=== PATIENT | male | born 1985 ===

== ENCOUNTER 2017-01-08 17:29 | Emergency (ER) | payer MEDICAID ==
[2017-01-08 17:47] VITALS: RESP 16; TEMP 98; O2SAT 100
[2017-01-08] MEDS ORDERED: levETIRAcetam 500 MG in Sodium Chloride 0.9% 100 ML IVPB STA (18:19)
--- NOTE | 2017-01-08 18:19 | ED PDOC ---
HPI: Seizure Time Seen by Provider: 01/08/17 17:49 Chief Complaint (Nursing): Headache Chief Complaint (Provider): Seizure History Per: Patient History/Exam Limitations: no limitations Recent Seizure Activity Began: Days Ago: (x1) Number Of Seizures: One Length Of Seizures (Duration): Seconds (3) Quality Of Seizure: Generalized Precipitating Factor(s): None Associated Symptoms: denies: Bit Tongue, Incontinence Of Urine Post-ictal Period: No Additional Complaint(s): Mario Ann, a 31 year old male, presents to the ED post seizure. The patient states that the seizure was witnessed by his mother and lasted about 3 seconds. He reports that he fell to the ground with loss of consciousness. As per mother , there was no post ictal period, no incontinence nor tongue biting. The patient states that he did not come to the hospital yesterday because he felt okay but this morning he woke with a bad headache. He states that he felt the pain in the back of his eyes and it radiated to the back of is head. The patient reports that he had a similar episode 5 months ago, witnessed by his . Prior to this episode he states that he was not feeling well and then had a seizure which lasted a few seconds but was not seen by a doctor at that time either. Patient states that before and after each episode he was sweaty and pale. Past Medical History Reviewed: Historical Data, Nursing Documentation, Vital Signs Vital Signs: Last Vital Signs Temp 98.0 F 01/08/17 17:44 Pulse 67 01/08/17 17:44 Resp 16 01/08/17 17:44 BP 125/79 01/08/17 17:44 Pulse Ox 100 01/08/17 18:20 - Surgical History Surgical History: No Surg Hx - Family History Family History: States: Unknown Family Hx - Home Medications Home Medications: Ambulatory Orders Medication Instructions Recorded No Known Home Med 01/08/17 - Allergies Allergies/Adverse Reactions: Allergies Allergy/AdvReac Type Severity Reaction Status Date / Time No Known Allergies Allergy Verified 01/08/17 17:44 Review of Systems ROS Statement: Except As Marked, All Systems Reviewed And Found Negative Neurological: Positive for: Seizures, Headache Physical Exam - Reviewed Nursing Documentation Reviewed: Yes Vital Signs Reviewed: Yes - Physical Exam Appears: Positive for: Non-toxic, No Acute Distress Head Exam: Positive for: ATRAUMATIC, NORMAL INSPECTION, NORMOCEPHALIC Skin: Positive for: Normal Color, Warm, Dry. Negative for: Rash Eye Exam: Positive for: Normal appearance, EOMI, PERRL ENT: Positive for: Normal ENT Inspection. Negative for: Nasal Congestion, Tonsillar Exudate Neck: Positive for: Normal, Painless ROM, Supple Cardiovascular/Chest: Positive for: Regular Rate, Rhythm, Chest Non Tender. Negative for: Edema, Tachycardia Respiratory: Positive for: Normal Breath Sounds. Negative for: Rales, Rhonchi, Wheezing, Respiratory Distress Gastrointestinal/Abdominal: Positive for: Normal Exam, Bowel Sounds, Soft. Negative for: Tenderness, Mass, Guarding, Rebound Back: Positive for: Normal Inspection. Negative for: L CVA Tenderness, R CVA Tenderness Extremity: Positive for: Normal ROM. Negative for: Tenderness, Pedal Edema, Deformity, Swelling Lymphatic: Positive for: Normal Exam. 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 Negative for: Motor/Sensory Deficits, Aphasia, Facial Droop - ECG O2 Sat by Pulse Oximetry: 100 (RA) Pulse Ox Interpretation: Normal - Physician Consult Information Time Consulting Physican Contacted: 18:20 Physician Contacted: Kalia Parnell Outcome Of Conversation: Recommends Keppra 500 mg bid, can follow-up as outpatient if CT head and electrolytes WNL. Medical Decision Making Medical Decision Makin Initial Impression 31 year old male presenting post seizure with headache Initial Plan: * CT Head w/o Contrast * EKG * CMP * TSH * Udip * CBC * PTT * Prothrombin Time * CXR * Keppra 500mg NS 100ml IVPB * Accucheck * Urinalysis * Reevaluation 1899 Patient will be signed out to Dr. Tafoya pending CT and labs. Scribe Attestation Documented by Maddi Brown acting as a scribe for Amy Reyes MD. Provider Attestation All medical record entries made by the Scribe were at my direction and personally dictated by me. I have reviewed the chart and agree that the record accurately reflects my personal performance of the history, physical exam, medical decision making, and the department course for this patient. I have also personally directed, reviewed, and agree with the discharge instructions and disposition. Disposition - Disposition Forms: [employer] (Ukrainian)
[2017-01-08 18:52] LABS: BASO % 0.4 % (0.0-2.0); EOS # 0.2 K/uL (0.0-0.7); EOS % 2.8 % (0.0-4.0); HEMATOCRIT 46.7 % (35.0-51.0); LYMPH # 3.5 K/uL (1.0-4.3); LYMPH % 40.5 % (20.0-40.0); MEAN CELL VOLUME 87.8 fl (80.0-94.0); MEAN CORPUSCULAR HEMOGLOBIN 29.6 pg (27.0-31.0); MEAN CORPUSCULAR HGB CONC 33.7 g/dL (33.0-37.0); MEAN PLATELET VOLUME 9.9 fl (7.2-11.7); MONO # 0.5 K/uL (0.0-0.8); NEUT # 4.3 K/uL (1.8-7.0); NEUT % 50.3 % (50.0-75.0); NRBC % 0.2 % (0.0-0.0); RED CELL DISTRIBUTION WIDTH 13.6 % (11.5-14.5); WHITE BLOOD COUNT 8.5 K/uL (4.8-10.8)
--- NOTE | 2017-01-08 18:59 | ED PDOC ---
- Laboratory Results Result Diagrams: 01/08/17 18:48 01/08/17 18:48 - ECG O2 Sat by Pulse Oximetry: 100 (RA) Pulse Ox Interpretation: Normal Medical Decision Making Medical Decision Making: Patient signed out to provider from Dr. Reyes at [address] Head Without Intravenous Contrast FINDINGS: Brain: No hemorrhage. No significant white matter disease. No edema. Ventricles: No hydrocephalus. Bones: Skull is intact. Sinuses: No acute sinusitis. Mastoid air cells: No mastoid effusion. IMPRESSION: No CT evidence of acute intracranial abnormality. Patient is feeling well. No neuro deficits noted. Results discussed. Referral provided for neurology Dr. Parnell. Questions answered and return precautions given. Scribe Attestation Documented by Maddi Brown acting as a scribe for Merrill Tafoya MD. Provider Attestation All medical record entries made by the Scribe were at my direction and personally dictated by me. I have reviewed the chart and agree that the record accurately reflects my personal performance of the history, physical exam, medical decision making, and the department course for this patient. I have also personally directed, reviewed, and agree with the discharge instructions and disposition. Disposition - Clinical Impression Clinical Impression: Seizure - POA Present On Arrival: None - Disposition Referrals: Cedric Parnell MD [Staff Provider] - Disposition: Routine/Home Disposition Time: 20:00 Condition: STABLE Prescriptions: levETIRAcetam [Keppra] 500 mg PO BID #60 tab Instructions: Recurrent Seizures in Adults (ED) Forms: [employer] (Kyrgyz)
[2017-01-08 19:05] LABS: ALB/GLOB RATIO 1.4 (1.0-2.1); ALKALINE PHOSPHATASE 86 U/L (38-126); ALT/SGPT 112 U/L (21-72); AST/SGOT 59 U/L (17-59); BILIRUBIN,TOTAL 0.4 mg/dl (0.2-1.3); BLOOD UREA NITROGEN 19 mg/dl (9-20); CALCIUM 9.6 mg/dL (8.4-10.2); CARBON DIOXIDE 27 mmol/L (22-30); CHLORIDE 102 mmol/L (98-107); GFR AFRICAN-AMERICAN > 60; GLUCOSE,RANDOM 93 mg/dL (75-110); SODIUM 139 mmol/l (132-148); TOTAL PROTEIN 7.9 G/DL (6.3-8.2)
[2017-01-08 19:07] LABS: RBC URINE 3 /hpf (0-3); URINE BACTERIA RARE (<OCC); URINE BILIRUBIN NEGATIVE (NEGATIVE); URINE BLOOD NEGATIVE (NEGATIVE); URINE COLOR YELLOW (YELLOW); URINE GLUCOSE (UA) NEG (Normal); URINE KETONE NEGATIVE (NEGATIVE); URINE LEUKOCYTE ESTERASE NEG Leu/uL (Negative); URINE PROTEIN NEGATIVE (NEGATIVE); URINE UROBILINOGEN 0.2-1.0 mg/dL (0.2-1.0); WBC URINE < 1 /hpf (0-5)
[2017-01-08 19:25] VITALS: BP 125/64; PULSE 63
[2017-01-08 19:36] LABS: THYROID STIMULATING HORMONE 0.79 mIU/ML (0.46-4.68)
--- NOTE | 2017-01-08 20:03 | CT ---
EXAM: CT Head Without Intravenous Contrast CLINICAL HISTORY: 31 years old, male; Pain; Headache; Other: Syncope , headaches; Additional info: Seizure TECHNIQUE: Axial computed tomography images of the head/brain without intravenous contrast. All CT scans at this facility use one or more dose reduction techniques, viz.: automated exposure control; ma/kV adjustment per patient size (including targeted exams where dose is matched to indication; i.e. head); or iterative reconstruction technique. Coronal and sagittal reformatted images were created and reviewed. COMPARISON: No relevant prior studies available. FINDINGS: Brain: No hemorrhage. No significant white matter disease. No edema. Ventricles: No hydrocephalus. Bones: Skull is intact. Sinuses: No acute sinusitis. Mastoid air cells: No mastoid effusion. IMPRESSION: No CT evidence of acute intracranial abnormality.
--- NOTE | 2017-01-09 07:21 | RAD ---
HISTORY: Seizure COMPARISON: No prior. FINDINGS: LUNGS: No active pulmonary disease. PLEURA: No significant pleural effusion identified, no pneumothorax apparent. CARDIOVASCULAR: Normal. OSSEOUS STRUCTURES: No significant abnormalities. VISUALIZED UPPER ABDOMEN: Normal. OTHER FINDINGS: None. IMPRESSION: No active disease.
--- NOTE | 2017-01-09 09:11 | CARD ---
APPROVED REPORT EKG Measurement Heart [id number] CO [id number] <Conclusion> Normal sinus rhythm Normal ECG
== END 2017-01-08 20:39 | disposition home or self-care (01) ==
LOC: H.ER 17:29
DX: G40.909 Epilepsy, unspecified, not intractable, without status epilepticus (principal)
CPT/HCPCS: 70450; 71010; 80053; 81003; 82948; 84443; 85025; 85610; 85730; 93005; 96374; 99285; J1953